=== PATIENT | male | born 1970 ===

== ENCOUNTER 2016-11-01 06:56 | Emergency (ER) | payer MEDICAID ==
[2016-11-01 07:20] VITALS: BP 134/78; PULSE 83; RESP 16; TEMP 98.7; O2SAT 99
--- NOTE | 2016-11-01 07:29 | ED PDOC ---
HPI: Back Time Seen by Provider: 11/01/16 07:00 Chief Complaint (Nursing): Abdominal Pain Chief Complaint (Provider): Back pain History Per: Patient History/Exam Limitations: no limitations Onset/Duration Of Symptoms: Days Current Symptoms Are (Timing): Still Present Quality Of Discomfort: Burning, "Pain" Severity: Mild Previous Symptoms: None Associated Symptoms: None Additional Complaint(s): Patient is a 46 year old male who presents to ED with left shoulder, abdominal and back pain for a couple of weeks. Patient states pain in the shoulder and abdomen are intermittent, evaluated in ED for same complaints with negative work up. States that the burning pain began in his lower back 2 weeks ago and has remained constant. Denies nausea, vomiting, diarrhea, fever, chills, urinary changes or any injury. Past Medical History Reviewed: Historical Data, Nursing Documentation, Vital Signs Vital Signs: Last Vital Signs Temp 98.7 F 11/01/16 07:16 Pulse 83 11/01/16 07:16 Resp 16 11/01/16 07:16 BP 134/78 11/01/16 07:16 Pulse Ox 99 11/01/16 07:16 - Medical History PMH: Anxiety, HTN, Hypercholesterolemia Denies: HIV, Chronic Kidney Disease, Seizures - Surgical History Surgical History: No Surg Hx - Family History Family History: States: Unknown Family Hx - Living Arrangements Living Arrangements: With Family - Home Medications Home Medications: Ambulatory Orders Medication Instructions Recorded Escitalopram [Lexapro] 10 mg PO DAILY 11/01/16 Famotidine [Pepcid] 20 mg PO BID #20 tab 11/01/16 Fenofibrate [Triglide] 1 tab PO DAILY 11/01/16 Lisinopril [Zestril] 1 tab PO DAILY 11/01/16 Naproxen [Naprosyn] 500 mg PO BID PRN #15 tablet 11/01/16 - Allergies Allergies/Adverse Reactions: Allergies Allergy/AdvReac Type Severity Reaction Status Date / Time No Known Allergies Allergy Verified 12/14/14 13:06 Review of Systems ROS Statement: Except As Marked, All Systems Reviewed And Found Negative Constitutional: Negative for: Fever, Chills Cardiovascular: Negative for: Chest Pain Respiratory: Negative for: Shortness of Breath Gastrointestinal: Positive for: Abdominal Pain. Negative for: Nausea, Vomiting , Diarrhea, Constipation Genitourinary Male: Negative for: Dysuria, Hematuria Musculoskeletal: Positive for: Shoulder Pain, Back Pain. Negative for: Neck Pain, Leg Pain Skin: Negative for: Rash Neurological: Negative for: Weakness, Numbness Physical Exam - Reviewed Nursing Documentation Reviewed: Yes Vital Signs Reviewed: Yes - Physical Exam Appears: Positive for: Non-toxic, No Acute Distress Skin: Positive for: Normal Color, Warm. Negative for: Rash Eye Exam: Positive for: Normal appearance Neck: Positive for: Normal, Painless ROM Gastrointestinal/Abdominal: Positive for: Normal Exam, Soft. Negative for: Tenderness, Distended Back: Positive for: Normal Inspection. Negative for: L CVA Tenderness, R CVA Tenderness, Vertebral Tenderness, Decreased ROM Extremity: Positive for: Normal ROM Neurologic/Psych: Positive for: Alert, Oriented. Negative for: Motor/Sensory Deficits - Laboratory Results Result Diagrams: 11/01/16 07:59 11/01/16 07:59 - ECG O2 Sat by Pulse Oximetry: 99 (RA) Pulse Ox Interpretation: Normal Medical Decision Making Medical Decision Making: Time: 0720 Initial impression: Shoulder, abdomen and back pain Initial plan: -- CT-abdomen -- EKG -- CMP -- Troponin -- CBC -- PT/PTT -- CXR -- U/A Time: [address] Mckee, states patient can be discharged at this time with follow up in his office Scribe Attestation: Documented by Angela Grossman acting as a scribe for Jackeline Shaikh MD MD Scribe Attestation: All medical record entries made by the Scribe were at my direction and personally dictated by me. I have reviewed the chart and agree that the record accurately reflects my personal performance of the history, physical exam, medical decision making, and the department course for this patient. I have also personally directed, reviewed, and agree with the discharge instructions and disposition. Disposition - Clinical Impression Clinical Impression: Chronic chest pain, Abdominal pain - Disposition Referrals: Oseas cMkee MD [Primary Care Provider] - Disposition: Routine/Home Disposition Time: 10:51 Prescriptions: Famotidine [Pepcid] 20 mg PO BID #20 tab Naproxen [Naprosyn] 500 mg PO BID PRN #15 tablet PRN Reason: Pain, Moderate (4-7) Instructions: Chest Pain (ED), Abdominal Pain (ED)
[2016-11-01 08:05] LABS: BASO % 0.5 % (0.0-2.0); EOS # 0.1 K/uL (0.0-0.7); EOS % 1.7 % (0.0-4.0); HEMATOCRIT 38.8 % (35.0-51.0); LYMPH # 2.4 K/uL (1.0-4.3); LYMPH % 39.1 % (20.0-40.0); MEAN CELL VOLUME 83.5 fl (80.0-94.0); MEAN CORPUSCULAR HEMOGLOBIN 27.4 pg (27.0-31.0); MEAN CORPUSCULAR HGB CONC 32.9 g/dL (33.0-37.0); MEAN PLATELET VOLUME 7.2 fl (7.2-11.7); MONO # 0.6 K/uL (0.0-0.8); MONO % 9.4 % (0.0-10.0); NEUT % 49.3 % (50.0-75.0); NRBC % 0.1 % (0.0-0.0); RED CELL DISTRIBUTION WIDTH 13.9 % (11.5-14.5)
[2016-11-01 08:23] LABS: ALB/GLOB RATIO 1.4 (1.0-2.1); ALKALINE PHOSPHATASE 56 U/L (38-126); ALT/SGPT 25 U/L (21-72); AST/SGOT 26 U/L (17-59); BILIRUBIN,TOTAL 0.5 mg/dl (0.2-1.3); BLOOD UREA NITROGEN 14 mg/dl (9-20); CALCIUM 9.6 mg/dL (8.4-10.2); CARBON DIOXIDE 26 mmol/L (22-30); CHLORIDE 102 mmol/L (98-107); GFR AFRICAN-AMERICAN > 60; GLUCOSE,RANDOM 112 mg/dL (75-110); POTASSIUM 3.9 MMOL/L (3.6-5.0); SODIUM 140 mmol/l (132-148); TOTAL PROTEIN 7.9 G/DL (6.3-8.2)
--- NOTE | 2016-11-01 08:52 | CT ---
PROCEDURE: CT Abdomen and Pelvis without intravenous contrast HISTORY: L sided abd pain COMPARISON: None. TECHNIQUE: Technique. Contrast Dose: Radiation dose: Total exam DLP = 695 mGy-cm. This CT exam was performed using one or more of the following dose reduction techniques: Automated exposure control, adjustment of the mA and/or kV according to patient size, and/or use of iterative reconstruction technique. FINDINGS: LOWER THORAX: Unremarkable. LIVER: Unremarkable. No gross lesion or ductal dilatation. GALLBLADDER AND BILE DUCTS: Unremarkable. PANCREAS: Unremarkable. No gross lesion or ductal dilatation. SPLEEN: Unremarkable. ADRENALS: Unremarkable. No mass. KIDNEYS AND URETERS: Unremarkable. No hydronephrosis. No solid mass. VASCULATURE: Unremarkable. No aortic aneurysm. BOWEL: Unremarkable. No obstruction. No gross mural thickening. APPENDIX: Unremarkable. Normal appendix. PERITONEUM: Unremarkable. No free fluid. No free air. LYMPH NODES: Unremarkable. No enlarged lymph nodes. BLADDER: Unremarkable. REPRODUCTIVE: Unremarkable. BONES: No acute fracture. OTHER FINDINGS: None. IMPRESSION: Unremarkable non contrast enhanced CT of the abdomen and pelvis.
[2016-11-01 10:04] LABS: PARTIAL THROMBOPLASTIN TIME 27.3 SECONDS (23.3-32.5)
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
[2016-11-01 10:27] LABS: RBC URINE 2 /hpf (0-3); URINE BACTERIA RARE (<OCC); URINE BILIRUBIN NEGATIVE (NEGATIVE); URINE BLOOD NEGATIVE (NEGATIVE); URINE COLOR YELLOW (YELLOW); URINE GLUCOSE (UA) NEG (Normal); URINE KETONE NEGATIVE (NEGATIVE); URINE LEUKOCYTE ESTERASE NEG Leu/uL (Negative); URINE PROTEIN NEGATIVE (NEGATIVE); URINE UROBILINOGEN 0.2-1.0 mg/dL (0.2-1.0); WBC URINE 1 /hpf (0-5)
--- NOTE | 2016-11-01 16:08 | CARD ---
APPROVED REPORT EKG Measurement Heart [id number] <Conclusion> Normal sinus rhythm Normal ECG
== END 2016-11-01 11:10 | disposition home or self-care (01) ==
LOC: H.ER 06:56
DX: R07.9 Chest pain, unspecified (principal); R10.9 Unspecified abdominal pain

== ENCOUNTER 2017-03-04 04:13 | Emergency (ER) | payer MEDICAID, OTHER ==
[2017-03-04 05:29] VITALS: BP 100/56; PULSE 67; RESP 18; TEMP 98.1; O2SAT 100
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
== END 2017-03-04 07:10 | disposition home or self-care (01) ==
LOC: H.ER 04:13
DX: S39.012A Strain of muscle, fascia and tendon of lower back, initial encounter (principal); S80.02XA Contusion of left knee, initial encounter; V43.52XA Car driver injured in collision with other type car in traffic accident, initial encounter; Y92.410 Unspecified street and highway as the place of occurrence of the external cause; E78.00 Pure hypercholesterolemia, unspecified; F41.9 Anxiety disorder, unspecified; I10 Essential (primary) hypertension